=== PATIENT | female | born 1975 | race Caucasian/White ===

== ENCOUNTER 2016-07-03 11:29 | Inpatient (IN) | payer OTHER ==
[2016-07-03 11:44] VITALS: BMI 28.5
--- NOTE | 2016-07-03 14:44 | HP ---
CIWA Score - CIWA Score Nausea/Vomitin-No Nausea/No Vomiting Muscle Tremors: 4-Moderate,w/Arms Extend Anxiety: 4-Mod. Anxious/Guarded Agitation: 4-Moderately Restless Paroxysmal Sweats: 1-Minimal Palms Moist Orientation: 0-Oriented Tacttile Disturbances: 3-Moderate Itch/Numb/Burn Auditory Disturbances: 0-None Visual Disturbances: 0-None Headache: 0-None Present CIWA-Ar Total Score: 16 Admission ROS BHS - HPI Chief Complaint: DETOX TX FOR ALCOHOL DEPENDENCE Allergies/Adverse Reactions: Allergies Allergy/AdvReac Type Severity Reaction Status Date / Time lamotrigine [From Lamictal] Allergy Unknown Rash Verified 01/21/16 18:26 History of Present Illness: 41 Y/O FEMALE WITH A HX OF ALCOHOL,COCAINE AND MARIJUANA/K2 DEPENDENCE SEEKING DETOX TX. PT HAS PREVIOUS HX OF DETOX ADMISSION BUT NEVER FINISHES DETOX. PT HAS BEEN TEAMED HERE IN ADMISSION BY CORINNE MEDINA AND THIS CATERING MANAGER TO FOCUS ON DETOX TX. BT AGREED AND DESIRES TO COMPLETE DETOX THEN REHAB. PT STATES SHE IS CURRENTLY HOMELESS. Exam Limitations: No Limitations - Ebola screening Have you traveled outside of the country in the last 21 days: No Have you had contact with anyone from an Ebola affected area: No Have you been sick,other than usual withdrawal symptoms: No Do you have a fever: No - Review of Systems Constitutional: Chills, Night Sweats, Changes in sleep EENT: reports: Blurred Vision, Nose Congestion Respiratory: reports: Shortness of Breath (HX ASTHMA), Wheezing Cardiac: reports: Lightheadedness GI: reports: Constipated, Diarrhea, Nausea, Vomiting : reports: Dysuria Musculoskeletal: reports: Back Pain, Joint Pain, Muscle Pain Integumentary: reports: No Symptoms Reported Neuro: reports: Headache, Tremors, Unsteady Gait Endocrine: reports: No Symptoms Reported Hematology: reports: Anemia Psychiatric: reports: Orientated x3, Agitated, Anxious, Depressed Other Systems: Reviewed and Negative Patient History - Patient Medical History Hx Anemia: Yes (NOT CURRENTLY ON SUPPLEMENT) Hx Asthma: Yes (ON ALBUTEROL INHALER) Hx Chronic Obstructive Pulmonary Disease (COPD): No Hx Cancer: No Hx Cardiac Disorders: No Hx Congestive Heart Failure: No Hx Hypertension: No Hx Hypercholesterolemia: No Hx Pacemaker: No HX Cerebrovascular Accident: No Hx Seizures: No Hx Dementia: No Hx Diabetes: No Hx Gastrointestinal Disorders: Yes (DYSPEPSIA) Hx Liver Disease: No Hx Genitourinary Disorders: No Hx Sexually Transmitted Disorders: No Hx Renal Disease (ESRD): No Hx Thyroid Disease: No Hx Human Immunodeficiency Virus (HIV): Yes (SINCE 2007;CURRENTLY ON MEDS) Hx Hepatitis C: No Hx Depression: Yes (ANXIETY ) Hx Suicide Attempt: No (DENIES) Hx Bipolar Disorder: No Hx Schizophrenia: No - Patient Surgical History Past Surgical History: No Hx Neurologic Surgery: No Hx Cataract Extraction: No Hx Cardiac Surgery: No Hx Lung Surgery: No Hx Breast Surgery: No Hx Breast Biopsy: No Hx Abdominal Surgery: No Hx Appendectomy: No Hx Cholecystectomy: No Hx Genitourinary Surgery: No Hx Section: Yes (1997) Hx Orthopedic Surgery: No Hx Hysterectomy: No Anesthesia Reaction: No - PPD History Previous Implant?: Yes Documented Results: Negative w/proof Implanted On Prior [facility] Admission?: Yes Date: 01/23/16 PPD to be Administered?: No - Reproductive History Patient is a Female of Child Bearing Age (11 -55 yrs old): Yes Last Menstrual Period: 07/03/16 Patient : No - Smoking Cessation Smoking history: Current every day smoker Have you smoked in the past 12 months: Yes Aproximately how many cigarettes per day: 30 Cigars Per Day: 0 Hx Chewing Tobacco Use: No Initiated information on smoking cessation: Yes 'Breaking Loose' booklet given: 07/03/16 - Substance & Tx. History Hx Alcohol Use: Yes (VODKA) Hx Substance Use: Yes (COCAINE/MARIJUANA/K2) Substance Use Type: Alcohol, Cocaine, Marijuana Hx Substance Use Treatment: Yes ([facility]) - Substances Abused VODKA Route: Oral Frequency: Daily Amount used: 1 PT Age of first use: 17 Date of Last Use: 07/02/16 Crack Route: Smoking Frequency: Daily Amount used: $400 -500 Age of first use: 23 Date of Last Use: 07/01/16 Marijuana/Hashish Route: Smoking Frequency: Daily Amount used: 2 BLUNTS Age of first use: 20 Date of Last Use: 07/02/16 K2 Frequency: 1-2 times per week Amount used: $20 Age of first use: 40 Date of Last Use: 07/02/16 Family Disease History - Family Disease History Family Disease History: Other: Father (ALCOHOL) Admission Physical Exam [facility] - Vital Signs Vital Signs: Vital Signs - 24 hr 07/03/16 11:41 Temperature 97.3 F L Pulse Rate 88 Respiratory 18 Rate Blood Pressure 141/86 - Physical General Appearance: Yes: Moderate Distress, Irritable, Anxious HEENTM: Yes: EOMI, Normocephalic, TAMARA, Pharynx Normal Respiratory: Yes: Chest Non-Tender, Lungs Clear, Normal Breath Sounds, No Respiratory Distress Neck: Yes: No masses,lesions,Nodules, Supple, Trachea in good position Cardiology: Yes: Regular Rhythm, Regular Rate, S1, S2 Abdominal: Yes: Normal Bowel Sounds, Non Tender, Soft Genitourinary: Yes: Other (N/C) Musculoskeletal: Yes: full range of Motion, Gait Steady Extremities: Yes: Normal Range of Motion, Non-Tender Neurological: Yes: supervisor clam bed II-XII NML intact, Fully Oriented, Alert Integumentary: Yes: Dry, Warm Lymphatic: Yes: Within Normal Limits - Diagnostic (1) Alcohol dependence with uncomplicated withdrawal Current Visit: Yes Status: Acute (2) Asthma Current Visit: Yes Status: Chronic Qualifiers: Asthma severity: mild intermittent Asthma complication type: uncomplicated Qualified Code(s): J45.20 - Mild intermittent asthma, uncomplicated (3) Human immunodeficiency virus infection Current Visit: Yes Status: Chronic (4) Nicotine dependence Current Visit: Yes Status: Chronic Qualifiers: Nicotine product type: cigarettes Substance use status: uncomplicated Qualified Code(s): F17.210 - Nicotine dependence, cigarettes, uncomplicated (5) cannabis dependence Current Visit: Yes Status: Acute (6) Cocaine dependence, uncomplicated Current Visit: Yes Status: Acute Cleared for Admission [facility] - Detox or Rehab [facility] Level of Care: Medically Managed Detox Regimen/Protocol: Librium [facility] Breath Alcohol Content Breath Alcohol Content: 0 Urine Pregancy Test - Result Urine Test Results: Negative- NO Line Present Urine Drug Screen - Results Drug Screen Negative: No Urine Drug Screen Results: THC-Marijuana, DOMENIC-Cocaine, AMP-Amphetamines, BZO- Benzodiazepines, OXY-Oxycodone
[2016-07-03] MEDS ORDERED: hydrOXYzine PAMOATE 25 MG CAPSULE (FP) PO PRN (15:01)
[2016-07-03] MEDS ORDERED: ACETAMINOPHEN 325 MG TABLET (FP) PO PRN (15:01)
[2016-07-03] MEDS ORDERED: chlordiazePOXIDE HCL 25 MG CAPSULE PO PRN (15:01)
[2016-07-03] MEDS ORDERED: MAG HYDROX/AL HYDROX/SIMETH 30 ML UNIT-DOSE CUP PO PRN (15:01)
[2016-07-03] MEDS ORDERED: MAGNESIUM CITRATE 300 ML BOTTLE PO PRN (15:01)
[2016-07-03] MEDS ORDERED: diphenhydrAMINE HCL 50 MG CAPSULE PO PRN (15:01)
[2016-07-03] MEDS ORDERED: LOPERAMIDE HCL 2 MG CAPSULE PO PRN (15:01)
[2016-07-03] MEDS ORDERED: IBUPROFEN 400 MG TABLET (FP) PO PRN (15:01)
[2016-07-03] MEDS ORDERED: NICOTINE POLACRILEX 4 MG GUM BUC PRN (15:01)
[2016-07-03] MEDS ORDERED: MENTHOL/PHENOL 1 EACH UD MM PRN (15:01)
[2016-07-03] MEDS ORDERED: MAGNESIUM HYDROX 2400MG/30ML ORAL SUSPENSION 30 ML CUP PO PRN (15:01)
[2016-07-03] MEDS ORDERED: P-EPHED 60MG/TRIPROLIDI 2.5MG TABLET PO PRN (15:01)
[2016-07-03] MEDS: chlordiazePOXIDE HCL 25 MG CAPSULE PO SCH ×2 (17:40→22:25)
[2016-07-03] MEDS: NICOTINE 21 MG/24 HOURS TOPICAL PATCH TD SCH (17:58)
[2016-07-03] MEDS: guaiFENesin/D-METHORPHAN HB 10 ML UNIT-DOSE CUPS PO PRN (22:24)
[2016-07-03] MEDS: THIAMINE HCL 100 MG TABLET (FP) PO SCH (22:25)
[2016-07-04 00:50] LABS: URINE APPEARANCE CLOUDY; URINE BILIRUBIN NEGATIVE (NEGATIVE); URINE COLOR AMBER; URINE GLUCOSE (UA) NEGATIVE (NEGATIVE); URINE KETONE NEGATIVE (NEGATIVE); URINE LEUK ESTERASE NEGATIVE (NEGATIVE); URINE NITRITE POSITIVE (NEGATIVE); URINE PROTEIN NEGATIVE (NEGATIVE); URINE UROBILINOGEN NEGATIVE E.U./dl (0.2-1.0)
[2016-07-04 00:52] LABS: URINE BLOOD 3+ (NEGATIVE)
[2016-07-04 01:20] LABS: URINE BACTERIA RARE /hpf (NONE SEEN); URINE MUCUS FEW; URINE RBC 34 /hpf (0-3); URINE WBC 26 /hpf (3-5)
[2016-07-04] MEDS: chlordiazePOXIDE HCL 25 MG CAPSULE PO SCH ×4 (06:28→22:15)
[2016-07-04] MEDS: guaiFENesin/D-METHORPHAN HB 10 ML UNIT-DOSE CUPS PO PRN (09:23)
[2016-07-04 10:27] LABS: MCH 33.2 pg (25.7-33.7); MCHC 33.5 g/dl (32.0-36.0); MEAN CELL VOLUME 99.1 fl (80-96); MEAN PLT VOLUME 8.5 fl (7.5-11.1); PLATELET COUNT 332 K/MM3 (134-434); WHITE BLOOD COUNT 8.4 K/mm3 (4.0-10.0)
[2016-07-04] MEDS: NICOTINE 21 MG/24 HOURS TOPICAL PATCH TD SCH (10:42)
[2016-07-04] MEDS: PRENATAL VITAMINS W/ FOLIC ACID TABLET (FP) PO SCH (10:42)
[2016-07-04 11:04] LABS: ALK PHOS 61 U/L (45-117); ANION GAP 8 (8-16); BILIRUBIN,TOTAL 0.8 mg/dL (0.2-1.0); CALCIUM 9.2 mg/dL (8.5-10.1); CO2 27 mmol/L (21-32); GLUCOSE,RANDOM 68 mg/dL (74-106); SGOT/AST 28 U/L (15-37); SGPT/ALT 26 U/L (12-78); TOT PROT 7.4 g/dl (6.4-8.2)
--- NOTE | 2016-07-04 11:07 | PN ---
S CIWA - CIWA Score Nausea/Vomitin-No Nausea/No Vomiting Muscle Tremors: 4-Moderate,w/Arms Extend Anxiety: 3 Agitation: 3 Paroxysmal Sweats: 3 Orientation: 0-Oriented Tacttile Disturbances: 0-None Auditory Disturbances: 0-None Visual Disturbances: 0-None Headache: 0-None Present CIWA-Ar Total Score: 13 BHS Progress Note (SOAP) Subjective: cough sweats shakes interrupted sleep irritable Objective: 07/04/16 11:06 Vital Signs Temperature 98.2 F 07/04/16 10:08 Pulse Rate 83 07/04/16 10:08 Respiratory Rate 18 07/04/16 10:08 Blood Pressure 129/75 07/04/16 10:08 O2 Sat by Pulse Oximetry (%) Laboratory Tests 07/03/16 07/04/16 22:33 06:00 WBC 8.4 RBC 4.42 Hgb 14.6 D Hct 43.7 MCV 99.1 H MCHC 33.5 RDW 13.0 Plt Count 332 D MPV 8.5 Urine Color Chrissie Urine Appearance Cloudy Urine pH 5.0 D Ur Specific [employer] [place] 1.023 Urine Protein Negative Urine Glucose (UA) Negative Urine Ketones Negative Urine Blood 3+ H Urine Nitrite Positive Urine Bilirubin Negative Urine Urobilinogen Negative Ur Leukocyte Esterase Negative Urine RBC 34 Urine WBC 26 Ur Epithelial Cells Moderate Urine Bacteria Rare Urine Mucus Few labs pending awake/alert ambulating no acute distress Assessment: 07/04/16 11:07 withdrawal sx Plan: continue detox increase fluids labs pending
--- NOTE | 2016-07-04 11:49 | EKG ---
Test Reason : Blood Pressure : / mmHG Vent. Rate : 077 BPM Atrial Rate : 077 BPM P-R Int : 146 ms QRS Dur : 082 ms QT Int : 382 ms P-R-T Axes : 073 035 039 degrees QTc Int : 432 ms NORMAL SINUS RHYTHM POSSIBLE LEFT ATRIAL ENLARGEMENT BORDERLINE ECG NO PREVIOUS ECGS AVAILABLE Confirmed by MARLYN NOBLES, DENNIS ([id number]) on 07/04/2016 11:49:02 AM Referred By: Confirmed By:DENNIS CLINE MD
--- NOTE | 2016-07-04 12:24 | CONSULT ---
[facility] Psychiatric Consult - Data Date of interview: 07/04/16 Admission source: [facility] Identifying data: Ms Stewart is a 41 years old single female, mother of a 18 years old son, unemployed supported self by prostitution, homeless Substance Abuse History: - Smoking Cessation. Smoking history: Current every day smoker. Have you smoked in the past 12 months: Yes. Aproximately how many cigarettes per day: 30. Cigars Per Day: 0. Hx Chewing Tobacco Use: No. Initiated information on smoking cessation: Yes. 'Breaking Loose' booklet given : 07/03/16. - Substance & Tx. History. Hx Alcohol Use: Yes (VODKA). Hx Substance Use: Yes (COCAINE/MARIJUANA/K2). Substance Use Type: Alcohol, Cocaine , Marijuana. Hx Substance Use Treatment: Yes ([facility]). - Substances Abused. VODKA. Route: Oral. Frequency: Daily. Amount used: 1 PT. Age of first use: 17. Date of Last Use: 07/02/16. Crack. Route: Smoking. Frequency: Daily. Amount used: $400 -500. Age of first use: 23. Date of Last Use: 07/01/16. Marijuana/Hashish. Route: Smoking. Frequency: Daily. Amount used: 2 BLUNTS. Age of first use: 20. Date of Last Use: 07/02/16. K2. Frequency: 1-2 times per week. Amount used: $20. Age of first use: 40. Date of Last Use: 07/02/16 Medical History: Significant for history of Anemia, Asthma, GERD, HIV+ and S/P C -Section Psychiatric History: Reports that she started psychiatric treatment at age 17 when she attended a clinic at [facility]. Claims that she was diagnosed with depression, anxiety, Bipolar, ADHD and Borderline Personality Disorder. Claims that she was tried on several medications including Buspar, Depakote, Celexa, [place] and Ritalin. Reports multiple psychiatric hospitalization with most recent from Feb to Mar 2016 to [facility] in [place]. She was discharged on Prozac 20 mg po daily & Seroquel 50 mg daily & 100 mg HS. Reports not currently seeing a psychiatrist but she was having her medications prescribed by her PCP. Denies history of suicidal ideations. Mental Status Exam - Mental Status Exam Alert and Oriented to: Time, Place, Person Cognitive Function: Fair Patient Appearance: Well Groomed Mood: Hopeful, Euthymic Affect: Appropriate Patient Behavior: Talkative, Cooperative Speech Pattern: Clear Voice Loudness: Normal Thought Process: Intact Thought Disorder: Not Present Hallucinations: Denies Suicidal Ideation: Denies Homicidal Ideation: Denies Insight/Judgement: Poor Sleep: Poorly Appetite: Good Muscle strength/Tone: Normal Gait/Station: Normal Psychiatric Findings - Problem List ([place] 1, 2,3) (1) ADHD (attention deficit hyperactivity disorder) Current Visit: No Status: Acute (2) Bipolar disorder Current Visit: Yes Status: Acute (3) Borderline personality disorder Current Visit: Yes Status: Ruled-out (4) Alcohol dependence with uncomplicated withdrawal Current Visit: Yes Status: Acute (5) Cocaine dependence, uncomplicated Current Visit: Yes Status: Acute (6) cannabis dependence Current Visit: Yes Status: Acute (7) Nicotine dependence Current Visit: Yes Status: Chronic Qualifiers: Nicotine product type: cigarettes Substance use status: uncomplicated Qualified Code(s): F17.210 - Nicotine dependence, cigarettes, uncomplicated (8) Asthma Current Visit: Yes Status: Chronic Qualifiers: Asthma severity: mild intermittent Asthma complication type: uncomplicated Qualified Code(s): J45.20 - Mild intermittent asthma, uncomplicated (9) Human immunodeficiency virus infection Current Visit: Yes Status: Chronic - Initial Treatment Plan Initial Treatment Plan: 1) Start Prozac 20 mg po daily and Seroquel 50 mg daily & 100 mg Hs. 2) Continue inpatient detox
[2016-07-04] MEDS: QUEtiapine FUMARATE 50 MG TABLET PO SCH (15:16)
[2016-07-04] MEDS: FLUoxetine HCL 20 MG CAPSULE (FP) PO SCH (15:16)
[2016-07-04] MEDS: THIAMINE HCL 100 MG TABLET (FP) PO SCH (22:15)
[2016-07-04] MEDS: QUEtiapine FUMARATE 100 MG TABLET (FP) PO SCH (22:15)
[2016-07-05] MEDS: chlordiazePOXIDE HCL 25 MG CAPSULE PO SCH ×2 (06:16→10:11)
[2016-07-05] MEDS: QUEtiapine FUMARATE 50 MG TABLET PO SCH (10:11)
[2016-07-05] MEDS: PRENATAL VITAMINS W/ FOLIC ACID TABLET (FP) PO SCH (10:11)
[2016-07-05] MEDS: FLUoxetine HCL 20 MG CAPSULE (FP) PO SCH (10:11)
[2016-07-05] MEDS: guaiFENesin/D-METHORPHAN HB 10 ML UNIT-DOSE CUPS PO PRN ×2 (10:13→17:34)
[2016-07-05] MEDS: NICOTINE 21 MG/24 HOURS TOPICAL PATCH TD SCH (10:13)
--- NOTE | 2016-07-05 11:06 | PN ---
S CIWA - CIWA Score Nausea/Vomitin Muscle Tremors: 2 Anxiety: 2 Agitation: 2 Paroxysmal Sweats: 2 Orientation: 1-Uncertain about Date Tacttile Disturbances: 2-Mild Itch/Numbness/Burn Auditory Disturbances: 0-None Visual Disturbances: 0-None Headache: 0-None Present CIWA-Ar Total Score: 13 BHS Progress Note (SOAP) Subjective: interrupted sleep, sweats Objective: 07/05/16 11:05 Vital Signs Temperature 98.3 F 07/05/16 10:13 Pulse Rate 87 07/05/16 10:13 Respiratory Rate 18 07/05/16 10:13 Blood Pressure 108/72 07/05/16 10:13 O2 Sat by Pulse Oximetry (%) Laboratory Tests 07/03/16 07/04/16 07/04/16 22:33 06:00 06:00 WBC 8.4 RBC 4.42 Hgb 14.6 D Hct 43.7 MCV 99.1 H MCHC 33.5 RDW 13.0 Plt Count 332 D MPV 8.5 Sodium 140 Potassium 3.9 Chloride 105 Carbon Dioxide 27 Anion Gap 8 BUN 12 Creatinine 1.0 D Creat Clearance w eGFR > 60 Random Glucose 68 L D Calcium 9.2 Total Bilirubin 0.8 D AST 28 D ALT 26 Alkaline Phosphatase 61 Total Protein 7.4 D Albumin 4.0 D Urine Color Chrissie Urine Appearance Cloudy Urine pH 5.0 D Ur Specific [place] 1.023 Urine Protein Negative Urine Glucose (UA) Negative Urine Ketones Negative Urine Blood 3+ H Urine Nitrite Positive Urine Bilirubin Negative Urine Urobilinogen Negative Ur Leukocyte Esterase Negative Urine RBC 34 Urine WBC 26 Ur Epithelial Cells Moderate Urine Bacteria Rare Urine Mucus Few RPR Titer 07/04/16 06:00 WBC RBC Hgb Hct MCV MCHC RDW Plt Count MPV Sodium Potassium Chloride Carbon Dioxide Anion Gap BUN Creatinine Creat Clearance w eGFR Random Glucose Calcium Total Bilirubin AST ALT Alkaline Phosphatase Total Protein Albumin Urine Color Urine Appearance Urine pH Ur Specific [place] Urine Protein Urine Glucose (UA) Urine Ketones Urine Blood Urine Nitrite Urine Bilirubin Urine Urobilinogen Ur Leukocyte Esterase Urine RBC Urine WBC Ur Epithelial Cells Urine Bacteria Urine Mucus RPR Titer Nonreactive 07/05/16 14:58 pt aox3 in nad ambulating Assessment: 07/05/16 11:06 withdrawl sx's 07/05/16 14:58 Plan: cont. detox increase fluids
[2016-07-05] MEDS: chlordiazePOXIDE 5 MG CAPSULE PO SCH ×2 (17:30→22:14)
[2016-07-05] MEDS: QUEtiapine FUMARATE 100 MG TABLET (FP) PO SCH (22:13)
[2016-07-05] MEDS: THIAMINE HCL 100 MG TABLET (FP) PO SCH (22:13)
[2016-07-06] MEDS: chlordiazePOXIDE 5 MG CAPSULE PO SCH ×2 (06:00→10:53)
[2016-07-06] MEDS: QUEtiapine FUMARATE 50 MG TABLET PO SCH (10:53)
[2016-07-06] MEDS: FLUoxetine HCL 20 MG CAPSULE (FP) PO SCH (10:54)
[2016-07-06] MEDS: PRENATAL VITAMINS W/ FOLIC ACID TABLET (FP) PO SCH (10:54)
[2016-07-06] MEDS: NICOTINE 21 MG/24 HOURS TOPICAL PATCH TD SCH (10:55)
--- NOTE | 2016-07-06 11:54 | PN ---
BHS Progress Note (SOAP) Subjective: tired feeling better Objective: 07/06/16 11:53 Vital Signs Temperature 98.4 F 07/06/16 10:00 Pulse Rate 82 07/06/16 10:00 Respiratory Rate 18 07/06/16 10:00 Blood Pressure 112/64 07/06/16 10:00 O2 Sat by Pulse Oximetry (%) awake/alert ambulating no acute distress Assessment: 07/06/16 11:53 withdrawal sx Plan: continue detox increase fluids d/c in am
[2016-07-06] MEDS: chlordiazePOXIDE HCL 10 MG CAPSULE PO SCH ×2 (16:58→22:39)
[2016-07-06] MEDS: guaiFENesin/D-METHORPHAN HB 10 ML UNIT-DOSE CUPS PO PRN (17:14)
[2016-07-06 22:03] VITALS: PULSE 85
[2016-07-06] MEDS: QUEtiapine FUMARATE 100 MG TABLET (FP) PO SCH (22:39)
[2016-07-06] MEDS: THIAMINE HCL 100 MG TABLET (FP) PO SCH (22:39)
[2016-07-07] MEDS: chlordiazePOXIDE HCL 10 MG CAPSULE PO SCH ×2 (06:53→11:50)
--- NOTE | 2016-07-07 08:59 | PN ---
BHS Progress Note (SOAP) Subjective: no complaints Objective: 07/07/16 08:57 Vital Signs - 24 hr 07/06/16 07/06/16 07/06/16 10:00 15:14 17:56 Temperature 98.4 F 99.3 F 98.6 F Pulse Rate 82 94 H 80 Respiratory 18 16 18 Rate Blood Pressure 112/64 121/60 108/57 07/06/16 07/07/16 07/07/16 22:02 00:30 03:30 Temperature 98.1 F Pulse Rate 85 Respiratory 18 16 18 Rate Blood Pressure 144/73 Laboratory Tests 07/03/16 07/04/16 07/04/16 22:33 06:00 06:00 WBC 8.4 RBC 4.42 Hgb 14.6 D Hct 43.7 MCV 99.1 H MCHC 33.5 RDW 13.0 Plt Count 332 D MPV 8.5 Sodium 140 Potassium 3.9 Chloride 105 Carbon Dioxide 27 Anion Gap 8 BUN 12 Creatinine 1.0 D Creat Clearance w eGFR > 60 Random Glucose 68 L D Calcium 9.2 Total Bilirubin 0.8 D AST 28 D ALT 26 Alkaline Phosphatase 61 Total Protein 7.4 D Albumin 4.0 D Urine Color Chrissie Urine Appearance Cloudy Urine pH 5.0 D Ur Specific [place] 1.023 Urine Protein Negative Urine Glucose (UA) Negative Urine Ketones Negative Urine Blood 3+ H Urine Nitrite Positive Urine Bilirubin Negative Urine Urobilinogen Negative Ur Leukocyte Esterase Negative Urine RBC 34 Urine WBC 26 Ur Epithelial Cells Moderate Urine Bacteria Rare Urine Mucus Few RPR Titer 07/04/16 06:00 WBC RBC Hgb Hct MCV MCHC RDW Plt Count MPV Sodium Potassium Chloride Carbon Dioxide Anion Gap BUN Creatinine Creat Clearance w eGFR Random Glucose Calcium Total Bilirubin AST ALT Alkaline Phosphatase Total Protein Albumin Urine Color Urine Appearance Urine pH Ur Specific [place] Urine Protein Urine Glucose (UA) Urine Ketones Urine Blood Urine Nitrite Urine Bilirubin Urine Urobilinogen Ur Leukocyte Esterase Urine RBC Urine WBC Ur Epithelial Cells Urine Bacteria Urine Mucus RPR Titer Nonreactive Assessment: 07/07/16 08:58 completed detox, medically stable Plan: d/c to rehab today when bed ready
--- NOTE | 2016-07-07 09:03 | DS ---
[facility] Detox Discharge Summary Admission Date: 07/03/16 Discharge Date: 07/07/16 - History Present History: Alcohol Dependence, Cannabis Dependence, Cocaine Dependence, K 2 Pertinent Past History: asthma, bipolar do, anxiety, depression, insomnia, HIV - Physical Exam Results Vital Signs: Vital Signs Temperature 98.1 F 07/06/16 22:02 Pulse Rate 85 07/06/16 22:02 Respiratory Rate 18 07/07/16 03:30 Blood Pressure 144/73 07/06/16 22:02 O2 Sat by Pulse Oximetry (%) Pertinent Admission Physical Exam Findings: withdrawal sx - Treatment Hospital Course: Detox Protocol Followed, Detoxed Safely, Responded well, Discharged Condition Good, Rehab Referral Accepted - Medication Discharge Medications: Ambulatory Orders Atazanavir Sulfate/Cobicistat [Evotaz 300 mg-150 mg Tablet] 1 each PO DAILY Dolutegravir Sodium [Tivicay] 50 mg PO DAILY 12/15/15 Fluoxetine HCl [Prozac -] 20 mg PO DAILY #30 capsule 07/04/16 Quetiapine Fumarate [Seroquel -] 50 mg PO DAILY #30 tablet 07/04/16 Quetiapine Fumarate [Seroquel -] 100 mg PO HS #30 tablet 07/04/16 - Diagnosis (1) Alcohol dependence with uncomplicated withdrawal Current Visit: Yes Status: Acute (2) Bipolar disorder Current Visit: Yes Status: Acute (3) Cocaine dependence, uncomplicated Current Visit: Yes Status: Acute (4) cannabis dependence Current Visit: Yes Status: Acute (5) Asthma Current Visit: Yes Status: Chronic Qualifiers: Asthma severity: mild intermittent Asthma complication type: uncomplicated Qualified Code(s): J45.20 - Mild intermittent asthma, uncomplicated (6) Human immunodeficiency virus infection Current Visit: Yes Status: Chronic (7) Nicotine dependence Current Visit: Yes Status: Chronic Qualifiers: Nicotine product type: cigarettes Substance use status: uncomplicated Qualified Code(s): F17.210 - Nicotine dependence, cigarettes, uncomplicated (8) Borderline personality disorder Current Visit: Yes Status: Ruled-out (9) ADHD (attention deficit hyperactivity disorder) Current Visit: No Status: Acute (10) Drug-induced mood disorder Current Visit: No Status: Acute (11) Weight loss Current Visit: No Status: Resolved - AMA Did Patient Leave Against Medical Advice: No
[2016-07-07 10:06] VITALS: BP 134/71; TEMP 98.2
[2016-07-07] MEDS: QUEtiapine FUMARATE 50 MG TABLET PO SCH (11:50)
[2016-07-07] MEDS: NICOTINE 21 MG/24 HOURS TOPICAL PATCH TD SCH (11:50)
[2016-07-07] MEDS: PRENATAL VITAMINS W/ FOLIC ACID TABLET (FP) PO SCH (11:50)
[2016-07-07] MEDS: FLUoxetine HCL 20 MG CAPSULE (FP) PO SCH (11:50)
== END 2016-07-07 12:03 | disposition other institution (70) | DRG 774 ==
LOC: YASAS 11:29 → Y6N 15:39 → Y3E 07-07 12:10 → Y6N 07-07 12:40
PROVIDERS: ADMIT Internal Medicine Addiction Medicine; ATTEND Internal Medicine Addiction Medicine
PROC: HZ2ZZZZ Detoxification Services for Substance Abuse Treatment (ICD-10-PCS; principal; 2016-07-05)
DX: F10.230 Alcohol dependence with withdrawal, uncomplicated (principal); F14.20 Cocaine dependence, uncomplicated; F12.20 Cannabis dependence, uncomplicated; F17.210 Nicotine dependence, cigarettes, uncomplicated; F60.3 Borderline personality disorder; F90.9 Attention-deficit hyperactivity disorder, unspecified type; F19.24 Other psychoactive substance dependence with psychoactive substance-induced mood disorder; F31.9 Bipolar disorder, unspecified; J45.20 Mild intermittent asthma, uncomplicated; Z21 Asymptomatic human immunodeficiency virus [HIV] infection status; Z87.898 Personal history of other specified conditions; Z86.2 Personal history of diseases of the blood and blood-forming organs and certain disorders involving the immune mechanism; Z59.0 Homelessness
CPT/HCPCS: 36415; 80053; 81003; 81015; 85027; 86593; 93005; 93010

== ENCOUNTER 2016-07-07 12:34 | Inpatient (IN) | payer OTHER ==
[2016-07-07 13:02] VITALS: BP 115/65; PULSE 85; TEMP 98.6
[2016-07-07 13:59] VITALS: BMI 29.9
[2016-07-07] MEDS ORDERED: ACETAMINOPHEN 325 MG TABLET (FP) PO PRN (15:32)
[2016-07-07] MEDS ORDERED: P-EPHED 60MG/TRIPROLIDI 2.5MG TABLET PO PRN (15:32)
[2016-07-07] MEDS ORDERED: MAG HYDROX/AL HYDROX/SIMETH 30 ML UNIT-DOSE CUP PO PRN (15:32)
[2016-07-07] MEDS ORDERED: IBUPROFEN 400 MG TABLET (FP) PO PRN (15:32)
[2016-07-07] MEDS ORDERED: hydrOXYzine PAMOATE 50 MG CAPSULE (FP) PO PRN (15:32)
[2016-07-07] MEDS ORDERED: NICOTINE POLACRILEX 4 MG GUM BUC PRN (15:32)
[2016-07-07] MEDS ORDERED: diphenhydrAMINE HCL 50 MG CAPSULE PO PRN (15:32)
[2016-07-07] MEDS ORDERED: MAGNESIUM CITRATE 300 ML BOTTLE PO PRN (15:32)
[2016-07-07] MEDS ORDERED: MAGNESIUM HYDROX 2400MG/30ML ORAL SUSPENSION 30 ML CUP PO PRN (15:32)
[2016-07-07] MEDS ORDERED: guaiFENesin/D-METHORPHAN HB 10 ML UNIT-DOSE CUPS PO PRN (15:32)
[2016-07-07] MEDS ORDERED: LOPERAMIDE HCL 2 MG CAPSULE PO PRN (15:32)
[2016-07-07] MEDS ORDERED: MENTHOL/PHENOL 1 EACH UD MM PRN (15:32)
[2016-07-07] MEDS ORDERED: NICOTINE 21 MG/24 HOURS TOPICAL PATCH TD SCH (15:45)
[2016-07-07] MEDS ORDERED: QUEtiapine FUMARATE 100 MG TABLET (FP) PO SCH (22:00)
[2016-07-07] MEDS ORDERED: THIAMINE HCL 100 MG TABLET (FP) PO SCH (22:00)
[2016-07-08] MEDS ORDERED: FLUoxetine HCL 20 MG CAPSULE (FP) PO SCH (10:00)
[2016-07-08] MEDS ORDERED: QUEtiapine FUMARATE 50 MG TABLET PO SCH (10:00)
[2016-07-08] MEDS ORDERED: PRENATAL VITAMINS W/ FOLIC ACID TABLET (FP) PO SCH (10:00)
== END 2016-07-07 19:40 | disposition left against medical advice (07) | DRG 770 ==
LOC: Y3E 12:34
PROVIDERS: ADMIT Psychiatry & Neurology Psychiatry; ATTEND Psychiatry & Neurology Psychiatry
PROC: HZ42ZZZ Group Counseling for Substance Abuse Treatment, Cognitive-Behavioral (ICD-10-PCS; principal; 2016-07-07)
DX: F10.20 Alcohol dependence, uncomplicated (principal); F14.20 Cocaine dependence, uncomplicated; F12.20 Cannabis dependence, uncomplicated; F17.210 Nicotine dependence, cigarettes, uncomplicated; J45.20 Mild intermittent asthma, uncomplicated; Z21 Asymptomatic human immunodeficiency virus [HIV] infection status; Z59.0 Homelessness

== ENCOUNTER 2016-07-31 13:57 | Inpatient (IN) | payer OTHER ==
[2016-07-31 15:57] VITALS: BMI 27.3
--- NOTE | 2016-07-31 16:59 | HP ---
Admission [facility] Chief Complaint: I need to go to rehab to stay sober. Allergies/Adverse Reactions: Allergies Allergy/AdvReac Type Severity Reaction Status Date / Time abacavir Allergy Severe Verified 07/31/16 16:48 lamotrigine [From Lamictal] Allergy Unknown Rash Verified 07/31/16 16:48 History of Present Illness: 40 y/o f pt with h/o polysubstance dep seeking rehab Exam Limitations: No Limitations - Ebola screening Have you traveled outside of the country in the last 21 days: No Have you had contact with anyone from an Ebola affected area: No Have you been sick,other than usual withdrawal symptoms: No Do you have a fever: No - Review of Systems Constitutional: No Symptoms Reported EENT: reports: No Symptoms Reported Respiratory: reports: No Symptoms reported Cardiac: reports: No Symptoms Reported GI: reports: No Symptoms Reported : reports: No Symptoms Reported Musculoskeletal: reports: No Symptoms Reported Integumentary: reports: No Symptoms Reported Neuro: reports: No Symptoms reported Endocrine: reports: No Symptoms Reported Hematology: reports: No Symptoms Reported Psychiatric: reports: Anxious Other Systems: Reviewed and Negative Patient History - Patient Medical History Hx Anemia: Yes (NOT CURRENTLY ON SUPPLEMENT) Hx Asthma: No Hx Chronic Obstructive Pulmonary Disease (COPD): No Hx Cancer: No Hx Cardiac Disorders: No Hx Congestive Heart Failure: No Hx Hypertension: No Hx Hypercholesterolemia: No Hx Pacemaker: No HX Cerebrovascular Accident: No Hx Seizures: No Hx Dementia: No Hx Diabetes: No Hx Gastrointestinal Disorders: No Hx Liver Disease: No Hx Genitourinary Disorders: No Hx Sexually Transmitted Disorders: No Hx Renal Disease (ESRD): No Hx Thyroid Disease: No Hx Human Immunodeficiency Virus (HIV): Yes (SINCE 2007;CURRENTLY ON MEDS) Hx Hepatitis C: No Hx Depression: Yes Hx Suicide Attempt: No Hx Bipolar Disorder: Yes Hx Schizophrenia: No - Patient Surgical History Past Surgical History: No Hx Neurologic Surgery: No Hx Cataract Extraction: No Hx Cardiac Surgery: No Hx Lung Surgery: No Hx Breast Surgery: No Hx Breast Biopsy: No Hx Abdominal Surgery: No Hx Appendectomy: No Hx Cholecystectomy: No Hx Genitourinary Surgery: No Hx Section: Yes (1997) Hx Orthopedic Surgery: No Hx Hysterectomy: No Anesthesia Reaction: No - PPD History Date: 01/23/16 - Reproductive History Patient is a Female of Child Bearing Age (11 -55 yrs old): Yes Last Menstrual Period: 07/03/16 Patient : No - Smoking Cessation Smoking history: Current every day smoker Have you smoked in the past 12 months: Yes Aproximately how many cigarettes per day: 30 Cigars Per Day: 0 Hx Chewing Tobacco Use: No Initiated information on smoking cessation: Yes 'Breaking Loose' booklet given: 07/31/16 - Substance & Tx. History Hx Alcohol Use: Yes Hx Substance Use: Yes Substance Use Type: Alcohol, Cocaine Hx Substance Use Treatment: Yes ([facility] ) - Substances Abused Alcohol Route: Oral Frequency: Daily Amount used: vodka 1pt /d Age of first use: 17 Date of Last Use: 07/11/16 Cocaine Route: Inhalation Frequency: Daily Amount used: $400-500./d Age of first use: 23 Date of Last Use: 07/11/16 k2 Route: Smoking Frequency: Daily Amount used: 2 blounts /d Age of first use: 40 Date of Last Use: 07/11/16 Family Disease History - Family Disease History Family Disease History: Other: Father (ALCOHOL) Admission Physical Exam S - Vital Signs Vital Signs: Vital Signs - 24 hr 07/31/16 15:54 Temperature 99.2 F Pulse Rate 70 Respiratory 18 Rate Blood Pressure 112/62 41 y/o f pt aox3 in nad who is sober needs help-rehab - Physical General Appearance: Yes: Appropriately Dressed, Anxious HEENTM: Yes: EOMI, Hearing grossly Normal, Normal ENT Inspection, Normocephalic , Normal Voice, TAMARA Respiratory: Yes: Chest Non-Tender, Lungs Clear, Normal Breath Sounds, No Respiratory Distress Neck: Yes: Supple, Trachea in good position Breast: Yes: Breast Exam Deferred Cardiology: Yes: Regular Rhythm, Regular Rate, S1, S2 Abdominal: Yes: Normal Bowel Sounds, Non Tender, Flat, Soft, Surgical Scar ( well healed c-s scar vertical) Genitourinary: Yes: Within Normal Limits Back: Yes: Within Normal Limits Musculoskeletal: Yes: Within Normal Limits Extremities: Yes: Within Normal Limits Neurological: Yes: Within Normal Limits Integumentary: Yes: Within Normal Limits Lymphatic: Yes: Within Normal Limits - Diagnostic (1) ADHD (attention deficit hyperactivity disorder) Current Visit: No Status: Acute (2) Alcohol dependence with uncomplicated withdrawal Current Visit: Yes Status: Chronic (3) Bipolar disorder Current Visit: Yes Status: Chronic Qualifiers: Current episode severity: unspecified (4) Cocaine dependence, uncomplicated Current Visit: Yes Status: Chronic (5) Human immunodeficiency virus infection Current Visit: Yes Status: Chronic (6) Nicotine dependence Current Visit: Yes Status: Chronic Qualifiers: Nicotine product type: cigarettes Substance use status: uncomplicated Qualified Code(s): F17.210 - Nicotine dependence, cigarettes, uncomplicated Cleared for Admission S - Detox or Rehab Claeared for Rehab Admission: Yes [facility] Breath Alcohol Content Breath Alcohol Content: 0 Urine Pregancy Test - Result Urine Test Results: Negative- NO Line Present Urine Drug Screen - Results Drug Screen Negative: No Urine Drug Screen Results: MDMA-Ecstasy, BZO-Benzodiazepines
[2016-07-31] MEDS ORDERED: IBUPROFEN 400 MG TABLET (FP) PO PRN (17:10)
[2016-07-31] MEDS ORDERED: MENTHOL/PHENOL 1 EACH UD MM PRN (17:10)
[2016-07-31] MEDS ORDERED: LOPERAMIDE HCL 2 MG CAPSULE PO PRN (17:10)
[2016-07-31] MEDS ORDERED: NICOTINE POLACRILEX 4 MG GUM BC PRN (17:10)
[2016-07-31] MEDS ORDERED: MAG HYDROX/AL HYDROX/SIMETH 30 ML UNIT-DOSE CUP PO PRN (17:10)
[2016-07-31] MEDS ORDERED: P-EPHED 60MG/TRIPROLIDI 2.5MG TABLET PO PRN (17:10)
[2016-07-31] MEDS ORDERED: MAGNESIUM CITRATE 300 ML BOTTLE PO PRN (17:10)
[2016-07-31] MEDS ORDERED: MAGNESIUM HYDROX 2400MG/30ML ORAL SUSPENSION 30 ML CUP PO PRN (17:10)
[2016-07-31] MEDS ORDERED: ACETAMINOPHEN 325 MG TABLET (FP) PO PRN (17:10)
[2016-07-31] MEDS ORDERED: guaiFENesin/D-METHORPHAN HB 10 ML UNIT-DOSE CUPS PO PRN (17:10)
[2016-07-31] MEDS ORDERED: diphenhydrAMINE HCL 50 MG CAPSULE PO PRN (17:10)
[2016-07-31] MEDS ORDERED: QUEtiapine FUMARATE 50 MG TABLET PO SCH (22:00)
[2016-07-31] MEDS ORDERED: THIAMINE HCL 100 MG TABLET (FP) PO SCH (22:00)
[2016-07-31 22:56] LABS: URINE APPEARANCE CLEAR; URINE BILIRUBIN NEGATIVE (NEGATIVE); URINE COLOR LTYELLOW; URINE GLUCOSE (UA) NEGATIVE (NEGATIVE); URINE KETONE NEGATIVE (NEGATIVE); URINE LEUK ESTERASE NEGATIVE (NEGATIVE); URINE NITRITE NEGATIVE (NEGATIVE); URINE PROTEIN NEGATIVE (NEGATIVE); URINE UROBILINOGEN NEGATIVE E.U./dl (0.2-1.0)
[2016-07-31 22:58] LABS: URINE BLOOD 3+ (NEGATIVE)
[2016-07-31 23:03] LABS: URINE MUCUS RARE; URINE RBC 239 /hpf (0-3); URINE WBC 5 /hpf (3-5)
[2016-08-01 06:34] VITALS: BP 97/64; PULSE 62; TEMP 97.4
[2016-08-01] MEDS ORDERED: PRENATAL VITAMINS W/ FOLIC ACID TABLET (FP) PO SCH (10:00)
[2016-08-01] MEDS ORDERED: NICOTINE 21 MG/24 HOURS TOPICAL PATCH TD SCH (10:00)
[2016-08-01 10:04] LABS: MCH 32.6 pg (25.7-33.7); MCHC 33.4 g/dl (32.0-36.0); MEAN CELL VOLUME 97.6 fl (80-96); MEAN PLT VOLUME 8.1 fl (7.5-11.1); PLATELET COUNT 256 K/MM3 (134-434); RDW 13.1 % (11.6-15.6); WHITE BLOOD COUNT 8.2 K/mm3 (4.0-10.0)
[2016-08-01 10:19] LABS: ALBUMIN 3.5 g/dl (3.4-5.0); ANION GAP 7 (8-16); CALCIUM 8.6 mg/dL (8.5-10.1); CO2 29 mmol/L (21-32); GLUCOSE,RANDOM 81 mg/dL (74-106)
[2016-08-01 10:22] LABS: ALK PHOS 68 U/L (45-117); BILIRUBIN,TOTAL 0.3 mg/dL (0.2-1.0); SGOT/AST 13 U/L (15-37); SGPT/ALT 20 U/L (12-78); TOT PROT 6.5 g/dl (6.4-8.2)
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
--- NOTE | 2016-08-01 12:23 | EKG ---
Test Reason : Blood Pressure : / mmHG Vent. Rate : 063 BPM Atrial Rate : 063 BPM P-R Int : 174 ms QRS Dur : 088 ms QT Int : 392 ms P-R-T Axes : 072 039 042 degrees QTc Int : 401 ms NORMAL SINUS RHYTHM NORMAL ECG WHEN COMPARED WITH ECG OF 03-JUL-2016 17:51, NO SIGNIFICANT CHANGE WAS FOUND Confirmed by DENNIS CLINE MD ([id number]) on 08/01/2016 12:23:19 PM Referred By: Confirmed By:DENNIS CLINE MD
--- NOTE | 2016-08-10 13:50 | PN ---
[facility] Progress Note Note: Patient decided to sign out AMA despite our strong recommendations to continue treatment .She left on the same day (less than 24 hrs staying in the unit).She was stable on discharge 08/01/16.
== END 2016-08-01 11:48 | disposition left against medical advice (07) | DRG 770 ==
LOC: YASAS 13:57 → Y3E 18:12
PROVIDERS: ADMIT Psychiatry & Neurology Psychiatry; ATTEND Psychiatry & Neurology Psychiatry
PROC: HZ42ZZZ Group Counseling for Substance Abuse Treatment, Cognitive-Behavioral (ICD-10-PCS; principal; 2016-08-01)
DX: F10.230 Alcohol dependence with withdrawal, uncomplicated (principal); F14.20 Cocaine dependence, uncomplicated; F12.20 Cannabis dependence, uncomplicated; F17.210 Nicotine dependence, cigarettes, uncomplicated; F32.9 Major depressive disorder, single episode, unspecified; F90.9 Attention-deficit hyperactivity disorder, unspecified type; Z21 Asymptomatic human immunodeficiency virus [HIV] infection status
CPT/HCPCS: 36415; 80053; 81003; 81015; 85027; 86593; 93005; 93010